=== PATIENT | female | born 1980 | race American Indian/Alaskan Native ===

== ENCOUNTER 2017-08-03 00:49 | Inpatient (IN) | payer OTHER ==
[~2017-08-03] VITALS: Ht 167.6 cm; Wt 55.7 kg
[~2017-08-03 00:49] MED LIST: AMOX1TAB64 PO; DOCU-131 PO; FERR325T18 PO; IBUP-1223 PO; PREN1TAB60 PO; septra PO
[2017-08-03] MEDS ORDERED: SODIUM CHLORIDE FLUSH 10ML SYR IVF ONE (01:30)
[2017-08-03] MEDS ORDERED: KETOROLAC 30 MG/1 ML IVPush ONE (01:30)
[2017-08-03] MEDS ORDERED: SODIUM CHLORIDE 0.9% 1,000ML IVBOLUS ONE ×2 (01:30→02:30)
[2017-08-03] MEDS ORDERED: ONDANSETRON 2MG/ML, 2ML IVP ONE (01:30)
[2017-08-03 01:56] LABS: BLOOD UREA NITROGEN 9 mg/dL (7-18)
[2017-08-03] MEDS ORDERED: ONDANSETRON 2MG/ML, 2ML ONE (01:57)
[2017-08-03] MEDS ORDERED: KETOROLAC 30 MG/1 ML ONE (01:57)
[2017-08-03 02:14] LABS: HEMATOCRIT 25.6 % (34.6-47.8); WHITE BLOOD COUNT 17.8 x10^3/uL (3.4-10)
[2017-08-03] MEDS ORDERED: CEFTRIAXONE PMX 1GM/50ML 50 ML IVPB ONE (02:30)
[2017-08-03] MEDS ORDERED: GUAIFENESIN 200 MG TABLET PO ONE (02:30)
[2017-08-03] MEDS ORDERED: AZITHROMYCIN 500 MG in SODIUM CHLORIDE 0.9% 250 ML IVPB ONE (02:30)
[2017-08-03] MEDS ORDERED: CEFTRIAXONE PMX 1GM/50ML 50 ML ONE (02:57)
[2017-08-03 03:42] VITALS: BP 112/68
[2017-08-03] MEDS ORDERED: ENOXAPARIN 40 MG/0.4 ML SQ SCH (05:30)
[2017-08-03] MEDS ORDERED: CEFTRIAXONE PMX 1GM/50ML 50 ML IV SCH (05:30)
[2017-08-03] MEDS ORDERED: ONDANSETRON 2MG/ML, 2ML IVPush PRN (05:30)
[2017-08-03] MEDS ORDERED: AZITHROMYCIN 500 MG in SODIUM CHLORIDE 0.9% 250 ML IV SCH (05:30)
[2017-08-03] MEDS ORDERED: ACETAMINOPHEN 325 MG TABLET PO PRN (05:30)
[2017-08-03] MEDS ORDERED: hydrALAzine 20 MG/ML, 1ML IVPush PRN (05:30)
[2017-08-03] MEDS: SODIUM CHLORIDE 0.9% 1,000 ML IV SCH ×2 (05:48→13:08)
[2017-08-03 06:14] LABS: TOTAL IRON BINDING CAPACITY 267 mcg/dL (250-450)
[2017-08-03 06:45] VITALS: BP 96/61
[2017-08-03 07:26] LABS: RAPID INFLUENZA A Negative (Negative); RAPID INFLUENZA B Negative (Negative)
[2017-08-03] MEDS ORDERED: IRON SUCROSE COMPLEX 100MG/5ML IV SCH (09:00)
[2017-08-03 14:12] VITALS: BP 109/71
[2017-08-03] MEDS ORDERED: LEVO750T26 PO (17:48)
[2017-08-03] MEDS ORDERED: FERR325T18 PO (17:53)
[2017-08-03] MEDS ORDERED: LEVOFLOXACIN 750 MG TABLET PO ONE (18:00)
== END 2017-08-03 19:00 | disposition home or self-care (01) | DRG 871 ==
LOC: ED 01:07 → EDIP 02:47 → 3NE 03:28
PROVIDERS: ADMIT Hospitalist; ATTEND Hospitalist
DX: A41.9 Sepsis, unspecified organism (principal); E43 Unspecified severe protein-calorie malnutrition; J18.1 Lobar pneumonia, unspecified organism; Z68.1 Body mass index [BMI] 19.9 or less, adult; R65.20 Severe sepsis without septic shock; R00.0 Tachycardia, unspecified; E87.6 Hypokalemia; D50.9 Iron deficiency anemia, unspecified; Z88.5 Allergy status to narcotic agent
CPT/HCPCS: 36415; 71020; 80048; 82040; 83540; 83550; 83605; 84703; 85025; 87040; 87081; 87400; 87880; 96361; 96374; 96375; J0456; J0696; J1650; J1756; J1885; J2405; J7030; J7050